=== PATIENT | female | born 1940 | race Caucasian/White ===

== ENCOUNTER 2024-02-11 11:40 | Outpatient (CLI) | payer MEDICARE, BC | END 2024-02-11 11:41 | disposition home or self-care (01) | LOC: CSHMAMMO 11:40 | PROVIDERS: ATTEND Internal Medicine | DX: Z12.31 Encounter for screening mammogram for malignant neoplasm of breast (principal); Z91.89 Other specified personal risk factors, not elsewhere classified | CPT/HCPCS: 77063; 77067 ==

== ENCOUNTER 2024-02-12 09:47 | Outpatient (CLI) | payer MEDICARE, BC | END 2024-02-12 09:48 | disposition home or self-care (01) | LOC: CSHMRI 09:47 | PROVIDERS: ATTEND Nurse Practitioner Pediatrics | DX: M48.062 Spinal stenosis, lumbar region with neurogenic claudication (principal); M47.816 Spondylosis without myelopathy or radiculopathy, lumbar region; M71.38 Other bursal cyst, other site; M48.07 Spinal stenosis, lumbosacral region; K76.9 Liver disease, unspecified | CPT/HCPCS: 72100; 72148 ==

== ENCOUNTER 2025-02-15 14:11 | Outpatient (CLI) | payer MEDICARE, BC | END 2025-02-15 14:12 | disposition home or self-care (01) | LOC: CSHMAMMO 14:11 | PROVIDERS: ATTEND Internal Medicine | DX: Z12.31 Encounter for screening mammogram for malignant neoplasm of breast (principal); R91.8 Other nonspecific abnormal finding of lung field; Z78.0 Asymptomatic menopausal state; Z91.89 Other specified personal risk factors, not elsewhere classified | CPT/HCPCS: 77063; 77067; 77080 ==

== ENCOUNTER 2025-02-20 10:54 | Outpatient (CLI) | payer MEDICARE, BC | END 2025-02-20 10:55 | disposition home or self-care (01) | LOC: CSHULT 10:54 | PROVIDERS: ATTEND Internal Medicine | DX: R59.1 Generalized enlarged lymph nodes (principal) ==